=== PATIENT | male | born 1980 | race Caucasian/White ===

== ENCOUNTER 2018-12-25 13:45 | Emergency (ER) | payer SELFPAY ==
[~2018-12-25] VITALS: Ht 170.2 cm; Wt 64.4 kg
[2018-12-25] MEDS ORDERED: IBUP1TAB7 PO (13:52)
[2018-12-25] MEDS ORDERED: diphenhydrAMINE INJ 50MG/ML VIAL (J1200) IV STA (14:20)
[2018-12-25] MEDS ORDERED: ISOVUE-370 76% 100ML VIAL (Q9967) As Ordered ONE (14:20)
[2018-12-25] MEDS ORDERED: METOCLOPRAMIDE INJ 10MG/2ML VIAL (J2765) IV ONE (14:30)
[2018-12-25] MEDS ORDERED: NS 1,000 ML IV ONE (14:30)
[2018-12-25 14:48] LABS: BASO # 0.1 10^3/uL (0.0-0.2); BASO % 0.7 % (0.0-1.0); EOS % 0.2 % (0.0-3.0); HEMOGLOBIN 16.1 g/dl (13.5-17.5); LYMPH # 1.8 10^3/uL (1.5-5.0); LYMPH % 15.5 % (24.0-44.0); MEAN CORPUSCULAR HEMOGLOBIN 31.2 pg (27.0-33.0); MEAN CORPUSCULAR HGB CONC 32.9 g/dl (32.0-36.5); MONO # 0.4 10^3/uL (0.0-0.8); MONO % 3.4 % (0.0-5.0); NEUTROPHILS # 9.3 10^3/uL (1.5-8.5); NEUTROPHILS % 79.7 % (36.0-66.0); PLATELET COUNT, AUTOMATED 223 10^3/uL (150-450); RED BLOOD COUNT 5.16 10^6/uL (4.30-6.10); WHITE BLOOD COUNT 11.7 10^3/uL (4.0-10.0)
[2018-12-25] MEDS ORDERED: KETOROLAC 30 MG/ML VIAL (J1885) IV ONE (15:15)
[2018-12-25 15:18] LABS: ACETAMINOPHEN LEVEL < 2.0 UG/ML (10.0-30.0); ALBUMIN 3.9 GM/DL (3.2-5.2); ALT/SGPT 22 U/L (12-78); BILIRUBIN,DIRECT < 0.1 MG/DL (0.0-0.2); BILIRUBIN,TOTAL 0.4 MG/DL (0.2-1.0); BLOOD UREA NITROGEN 12 MG/DL (7-18); CALCIUM LEVEL 9.4 MG/DL (8.5-10.1); CARBON DIOXIDE LEVEL 30 MEQ/L (21-32); CHLORIDE LEVEL 106 MEQ/L (98-107); CK-MB VALUE MASS < 1.0 NG/ML (<3.6); CPK CREATINE PHOSPHOKINASE 110 U/L (39-308); CREATININE FOR GFR 1.05 MG/DL (0.70-1.30); ETHYL ALCOHOL (ETHANOL) < 0.003 % (0.000-0.010); GLOMERULAR FILTRATION RATE > 60.0 (>60); GLUCOSE, FASTING 110 MG/DL (70-100); MB/CK RELATIVE INDEX 0.91 (< OR =4); POTASSIUM SERUM 4.6 MEQ/L (3.5-5.1); SALICYLATE LEVEL 4.3 MG/DL (5.0-30.0); SODIUM LEVEL 139 MEQ/L (136-145); THYROID STIMULATING HORMONE 0.551 uIU/ML (0.358-3.740); TOTAL PROTEIN 7.2 GM/DL (6.4-8.2); TROPONIN I < 0.02 NG/ML (< 0.10)
[2018-12-25 15:25] LABS: AMPHETAMINES LEVEL URINE NEGATIVE (NEGATIVE); BARBITURATES URINE POSITIVE (NEGATIVE); BENZODIAZEPINES URINE NEGATIVE (NEGATIVE); CANNABINOIDS URINE POSITIVE (NEGATIVE); COCAINE METABOLITE URINE NEGATIVE (NEGATIVE); METHADONE URINE NEGATIVE (NEGATIVE); OPIATES URINE NEGATIVE (NEGATIVE); PHENCYCLIDINE URINE NEGATIVE (NEGATIVE)
[2018-12-25] MEDS ORDERED: REGL10TA6 PO (15:52)
[2018-12-25] MEDS ORDERED: IBUP-1022 PO (15:52)
[2018-12-25 16:03] VITALS: BP 136/92
--- NOTE | 2018-12-26 06:33 | REP ---
REASON: Altered mental status. TECHNIQUE: 4.5 mm contiguous transaxial sections were obtained from the skull base to the cerebral convexities with thin cuts through the posterior fossa without the administration of intravenous contrast. FINDINGS: The ventricles and sulci are consistent with the patient's age. There are no extra-axial fluid collections. There is no mass effect. The deep cerebral white matter is consistent with the patient's age. The orbital and petrous structures , cerebellopontine angles, and posterior fossa are unremarkable. The sella turcica, cavernous, and paracavernous structures are essentially unremarkable. The visualized portions of the paranasal sinuses and mastoid air cells are clear. Images of the skull base show no gross abnormality. IMPRESSION: Essentially unremarkable CT examination of the brain. Electronically Signed by Dinh Jarvis DO 12/26/2018 12:44 P
== END 2018-12-25 16:36 | disposition home or self-care (01) ==
LOC: M ED 13:45
DX: R51 Headache (principal)
CPT/HCPCS: 70450; 80048; 80076; 80307; 82550; 82553; 84443; 84484; 85025; 93041; 94760; 96361; 96374; 96375; 99284; G0480; J1200; J1885; J2765

== ENCOUNTER 2022-06-25 17:25 | Emergency (ER) | payer SELFPAY, OTHER ==
[~2022-06-25] VITALS: Ht 170.2 cm; Wt 63.9 kg
[~2022-06-25 17:25] MED LIST: IBUP-1022 PO; IBUP1TAB7 PO; REGL10TA6 PO
[2022-06-25] MEDS ORDERED: VILA10TA (17:41)
[2022-06-25] MEDS ORDERED: ARIP1TAB10 (17:41)
[2022-06-25] MEDS ORDERED: AZIT-12 (17:41)
[2022-06-25] MEDS ORDERED: HYDR-3363 (17:41)
[2022-06-25] MEDS ORDERED: OXYB-54 (17:41)
[2022-06-25] MEDS ORDERED: BUPR300T92 (17:41)
[2022-06-25] MEDS ORDERED: ATOR1TAB21 (17:41)
[2022-06-25] MEDS ORDERED: AUGMENTIN 875 MG TAB PO ONE (21:35)
[2022-06-25] MEDS ORDERED: AMOX875T2 PO (21:35)
[2022-06-25 21:36] VITALS: BP 140/92
== END 2022-06-25 21:42 | disposition home or self-care (01) ==
LOC: M ED 17:25
DX: J36 Peritonsillar abscess (principal); E78.5 Hyperlipidemia, unspecified; F17.200 Nicotine dependence, unspecified, uncomplicated; F12.10 Cannabis abuse, uncomplicated

== ENCOUNTER 2023-05-26 19:40 | Emergency (ER) | payer OTHER ==
[~2023-05-26] VITALS: Ht 170.2 cm; Wt 61.4 kg
[~2023-05-26 19:40] MED LIST changes: +AMOX875T2 PO; +ARIP1TAB10; +ATOR1TAB21; +AZIT-12; +BUPR300T92; +HYDR-3363; +OXYB-54; +VILA10TA
[2023-05-26 22:40] VITALS: BP 137/92; TEMP 98.5; O2SAT 97
== END 2023-05-26 23:09 | disposition home or self-care (01) ==
LOC: M ED 19:40
DX: Z71.1 Person with feared health complaint in whom no diagnosis is made (principal); F17.200 Nicotine dependence, unspecified, uncomplicated

== ENCOUNTER 2023-05-29 18:02 | Emergency (ER) | payer OTHER ==
[~2023-05-29] VITALS: Ht 170.2 cm; Wt 61.4 kg
[2023-05-29 18:03] VITALS: BP 165/98; TEMP 97.8; O2SAT 98
[2023-05-29] MEDS: AMOXICILLIN 500 MG CAP PO ONE (18:44)
[2023-05-29] MEDS ORDERED: AMOX500C PO (18:45)
== END 2023-05-29 19:15 | disposition home or self-care (01) ==
LOC: M ED 18:02
DX: J01.90 Acute sinusitis, unspecified (principal); E78.00 Pure hypercholesterolemia, unspecified; F41.9 Anxiety disorder, unspecified; F32.A Depression, unspecified; F17.200 Nicotine dependence, unspecified, uncomplicated; Z79.899 Other long term (current) drug therapy

== ENCOUNTER → 2024-04-06 | Outpatient (REF) | payer OTHER ==
[~2024-04-06] MED LIST changes: +AMOX500C PO; +BUPR-597; -BUPR300T92
[2024-04-06 14:54] LABS: HEMATOCRIT 45.2 % (42.0-52.0); MEAN CORPUSCULAR HEMOGLOBIN 31.5 pg (27.0-33.0); MEAN CORPUSCULAR HGB CONC 33.2 g/dl (32.0-36.5); PLATELET COUNT, AUTOMATED 176 10^3/uL (150-450); RED BLOOD COUNT 4.76 10^6/uL (4.30-6.10); WHITE BLOOD COUNT 6.9 10^3/uL (4.0-10.0)
[2024-04-06 15:23] LABS: ALBUMIN 3.9 G/DL (3.2-5.2); ALKALINE PHOSPHATASE 86 U/L (40-129); ALT/SGPT 17 U/L (7.0-40); AST/SGOT 11 U/L (<34); BILIRUBIN,TOTAL 0.4 MG/DL (0.3-1.2); BLOOD UREA NITROGEN 12 MG/DL (9-23); CALCIUM LEVEL 9.5 MG/DL (8.5-10.1); CARBON DIOXIDE LEVEL 29 MMOL/L (20-31); CHLORIDE LEVEL 108 MMOL/L (98-107); CHOLESTEROL LEVEL 247 MG/DL (<200); CHOLESTEROL RISK RATIO 5.12 (<5); CREATININE FOR GFR 0.97 MG/DL (0.70-1.30); GLOMERULAR FILTRATION RATE > 60.0 (>60); GLUCOSE, FASTING 114 MG/DL (60-100); HDL CHOLESTEROL 48.2 MG/DL (>40); LDL CHOLESTEROL 168.6 MG/DL (<100); NON-HDL-C 198.8 MG/DL; POTASSIUM SERUM 4.3 MMOL/L (3.5-5.1); SODIUM LEVEL 141 MMOL/L (136-145); TOTAL PROTEIN 7.2 G/DL (5.7-8.2); TRIGLYCERIDES LEVEL 151 MG/DL (<150)
[2024-04-06 15:25] LABS: THYROID STIMULATING HORMONE 2.057 uIU/ML (0.55-4.78)
[2024-04-06 15:58] LABS: HEPATITIS C VIRUS ABY INDEX < 0.02 INDEX (<0.8)
[2024-04-06 16:01] LABS: HEMOGLOBIN A1c 5.3 % (4.0-6.0)
== END ==
LOC: M LAB REF 13:15
PROVIDERS: ATTEND Student in an Organized Health Care Education/Training Program
DX: Z00.01 Encounter for general adult medical examination with abnormal findings (principal); Z11.59 Encounter for screening for other viral diseases; L64.9 Androgenic alopecia, unspecified

== ENCOUNTER → 2024-07-28 | Outpatient (CLI) | payer MEDICAID ==
[~2024-07-28] MED LIST changes: -BUPR-597; +BUPR-766
== END ==
LOC: M OUTALCOH 12:13
PROVIDERS: ATTEND Psychiatry & Neurology Psychiatry
DX: F12.20 Cannabis dependence, uncomplicated (principal); F17.200 Nicotine dependence, unspecified, uncomplicated

== ENCOUNTER 2024-10-06 13:58 | Outpatient (RCR) | payer MEDICAID | END 2024-10-12 | LOC: M OUTALCOH 13:58 | PROVIDERS: ATTEND Psychiatry & Neurology Psychiatry | DX: F12.10 Cannabis abuse, uncomplicated (principal); F17.200 Nicotine dependence, unspecified, uncomplicated ==

== ENCOUNTER 2024-11-03 14:00 | Outpatient (RCR) | payer MEDICAID ==
[~2024-11-03 14:00] MED LIST changes: -IBUP-1022 PO; +IBUP600T42 PO
== END 2024-11-12 ==
LOC: M OUTALCOH 14:00
PROVIDERS: ATTEND Psychiatry & Neurology Psychiatry
DX: F12.20 Cannabis dependence, uncomplicated (principal); F17.200 Nicotine dependence, unspecified, uncomplicated
CPT/HCPCS: G0397 ×2

== ENCOUNTER 2024-12-06 11:00 | Outpatient (RCR) | payer MEDICAID | END 2024-12-12 | LOC: M OUTALCOH 11:00 | PROVIDERS: ATTEND Psychiatry & Neurology Psychiatry | DX: F12.10 Cannabis abuse, uncomplicated (principal); F17.200 Nicotine dependence, unspecified, uncomplicated ==

== ENCOUNTER 2024-12-19 15:59 | Outpatient (RCR) | payer MEDICAID, OTHER | END 2025-01-12 | LOC: M OUTALCOH 15:59 | PROVIDERS: ATTEND Psychiatry & Neurology Psychiatry | DX: F12.20 Cannabis dependence, uncomplicated (principal); F17.200 Nicotine dependence, unspecified, uncomplicated ==